=== PATIENT | male | born 1955 | race Caucasian/White ===

== ENCOUNTER 2020-03-13 11:16 | Outpatient (CLI) | payer BC, SELFPAY ==
--- NOTE | ~2020-03-13 | XR_ITS ---
XR finger 3rd RT min 2V DATE: 03/13/2020 11:46 INDICATION: Crush injury with distal pain TECHNIQUE: 4 views COMPARISON: None FINDINGS: There is mild soft tissue swelling of the digit, centered at the proximal interphalangeal j oint. No fracture or dislocation, periosteal reaction or bone destruction or radiopaque foreign body of the third digit is evident. IMPRESSION: Soft tissue swelling Reviewed, dictated and finalized at location A. IMPRESSION: Soft tissue swelling
== END 2020-03-13 11:17 | disposition home or self-care (01) ==
PROVIDERS: PCP Family Medicine Adolescent Medicine; Visit Provider Family Medicine Adolescent Medicine
DX: S67.192A Crushing injury of right middle finger, initial encounter (principal); M79.89 Other specified soft tissue disorders
CPT/HCPCS: 73140